=== PATIENT | female | born 1980 | race Caucasian/White ===

== ENCOUNTER 2016-12-08 15:40 | Emergency (ER) | payer OTHER ==
[~2016-12-08] VITALS: Ht 170.2 cm; Wt 100.0 kg
[~2016-12-08 15:40] MED LIST: AZIT250T94 PO; D-ME473S2 PO; IBUP-1542 PO; PRENAT PO; TYL500 PO
[2016-12-08 15:47] VITALS: Ht 170.2 cm; Wt 100.0 kg
[2016-12-08] MEDS ORDERED: ONDANSETRON 4 MG INJ IV STA (17:20)
[2016-12-08] MEDS ORDERED: morphine 4 MG/ML VIAL IV STA (17:20)
[2016-12-08 17:40] LABS: BASOPHILS % 0.4 % (0.0-2.0); EOSINOPHILS # 0.3 10^3/ul (0.0-0.5); EOSINOPHILS % 2.8 % (0.0-7.0); HEMATOCRIT 39.3 % (37.0-47.0); HEMOGLOBIN 13.5 g/dl (12.0-16.0); LYMPHOCYTES # 2.8 10^3/ul (0.8-2.9); LYMPHOCYTES % 26.8 % (15.0-51.0); MEAN CORPUSCULAR HEMOGLOBIN 32.7 pg (29.0-33.0); MEAN CORPUSCULAR HGB CONC 34.4 g/dl (32.0-37.0); MEAN CORPUSCULAR VOLUME 95.2 fl (82.0-101.0); MEAN PLATELET VOLUME 9.4 fl (7.4-10.4); MONOCYTE # 0.8 10^3/ul (0.3-0.9); MONOCYTES % 7.4 % (0.0-11.0); NEUTROPHILS % 62.1 % (39.0-77.0); PLATELET COUNT 264 10^3/UL (140-415); RED BLOOD COUNT 4.13 10^6/ul (4.20-5.40); RED CELL DISTRIBUTION WIDTH 12.4 % (11.5-14.5); WHITE BLOOD COUNT 10.3 10^3/ul (4.8-10.8)
[2016-12-08 17:51] LABS: ADD UMIC YES; UR ASCORBIC ACID NEGATIVE (NEGATIVE); UR BACTERIA FEW /HPF (NONE SEEN); UR BILIRUBIN (Dip) NEGATIVE (NEGATIVE); UR BLOOD (Dip) NEGATIVE (NEGATIVE); UR BUDDING YEAST MANY /HPF (NONE SEEN); UR CLARITY CLOUDY (CLEAR); UR COLOR YELLOW (YELLOW); UR GLUCOSE (Dip) NEGATIVE (NEGATIVE); UR KETONES (Dip) NEGATIVE (NEGATIVE); UR LEUKOCYTE ESTERASE (Dip) NEGATIVE Leu/ul (NEGATIVE); UR NITRITE (Dip) NEGATIVE (NEGATIVE); UR RBC 3 /HPF (0-5); UR SPECIFIC GRAVITY (Dip) 1.021 (1.003-1.030); UR SQUAMOUS EPITHELIAL CELL FEW /HPF (FEW); UR TOTAL PROTEIN (Dip) NEGATIVE (NEGATIVE); UR UROBILINOGEN (Dip) NEGATIVE (NEGATIVE)
[2016-12-08 18:03] LABS: ALBUMIN 4.4 g/dl (3.3-4.9); ALBUMIN/GLOBULIN RATIO 1.37; BILIRUBIN,INDIRECT 0.1 mg/dl (0-1.1); BILIRUBIN,TOTAL 0.1 mg/dl (0.2-1.3); CALCIUM 9.1 mg/dl (8.4-10.2); CREATININE 0.81 mg/dl (0.44-1.00); POTASSIUM 4.4 mmol/L (3.5-5.1); TOTAL PROTEIN 7.6 g/dl (6.1-8.1)
[2016-12-08] MEDS ORDERED: KETOROLAC 30 MG INJ IV STA (18:19)
--- NOTE | 2016-12-08 19:42 | RADRPT ---
PROCEDURE: CT Abdomen and Pelvis without contrast CLINICAL INDICATION: Abdominal pain TECHNIQUE: Transaxial images were obtained through the abdomen and pelvis on a multi-slice scanner without the intravenous contrast administration. No oral contrast had previously been given. Sagit hellen and coronal re-formations were subsequently reconstructed. One or more of the following dose reduction techniques were used: - Automated exposure control. - Adjustment of the mA and/or kV according to patient size. - Use of iterative reconstruction technique. Radiation dose: CTDIvol = 22.34 mGy; DLP = 1260.64 mGy-cm. COMPARISON: 08/13/2012 FINDINGS: Lung bases: The visualized lung bases appear unremarkable. Liver: The liver is quite enlarged but no focal lesion is identified. Gallbladder: Surgical vanessa are seen in the gallbladder fossa. Bile ducts: The intra and extrahepatic bile ducts are normal in caliber. Pancreas: Appears normal with no mass or inflammation evident. Spleen: The spleen is enlarged. Adrenals: Normal with no mass identified. Kidneys, ureters and bladder: The kidneys are normal in size and there is no mass, pathological calc ification, or hydronephrosis evident. There is no perinephric stranding. The ureters are normal in c aliber and no ureteroliths are identified. The bladder appears unremarkable. Reproductive organs: An IUD is seen within the uterus. A 3.7 cm left adnexal cyst has developed. The previously visualized right adnexal cyst is no longer identified. Stomach and bowel: The stomach is moderately distended with food debris. The small bowel pattern and has normalized. An anastomotic staple line is again seen in the region of the cecum. There is a doc rt segment of stool distended distal sigmoid colon measuring 4.9 cm in cross diameter. Appendix: The vermiform appendix is not identified. Peritoneum: No free intraperitoneal fluid or air is identified. Aorta: Normal in caliber with no aneurysmal dilatation. IVC: Unremarkable. Lymph nodes: No pathologically enlarged nodes are identified. Osseous structures: The osseous elements appear intact. IMPRESSION: 1. When compared to the previous CT of 08/13/2012, there is no longer evidence of small bowel obstr uction. The stomach is moderately distended with food debris and a staple line is again seen in the region of the cecum with an interval appendectomy. There is a short stool distended segment of dista l sigmoid colon measuring 4.9 cm in diameter. There is no evidence of bowel inflammation. 2. There is no longer free intraperitoneal fluid. No free air is identified. 3. Persistent hepatosplenomegaly. 4. There is again evidence of a previous cholecystectomy. There is no longer bile duct dilatation. 5. The right adnexal cyst is resolved and now there is a 3.7 cm left adnexal cyst. An IUD is seen i n the uterus. 6. [place] are no longer seen within the right lower quadrant. 7. The lung bases have cleared. Physician Farideh Date Time Electronically viewed and signed by Physician Farideh on 12/08/2016 19:42 RH/
--- NOTE | 2016-12-08 19:44 | ERD ---
ER Documentation Chief Complaint Date/Time DATE: 12/08/16 TIME: 19:42 Chief Complaint pt c/o RLQ pain same site of her appy surg 4 yrs ago HPI This is a 36-year-old female presents to the ER with right lower quadrant tenderness for the last 3 days. Patient states that right lower quadrant pain is worse whenever she moves or walks. She denies any fevers or chills. She denies nausea vomiting or diarrhea. Patient denies any urinary frequency or dysuria. Patient had an appendectomy 4 years ago, however she is worried about a hernia. She denies any pelvic pain or vaginal discharge. ROS 12 point review of systems was done, all negative except per HPI. Medications Home Meds Active Scripts Ibuprofen* (Motrin*) 600 Mg Tab, 600 MG PO Q6, #30 TAB Prov:HI ROSA 06/22/15 Acetaminophen* (Tylenol*) 500 Mg Tab, 500 MG PO Q4H Y for MILD PAIN LEVEL 1-3, # 16 TAB Prov:CONNIE HAYWARD MD 04/26/15 Dextromethorphan Hb-Promethazine Hcl* (Promethazine DM* Syrup) 473 Ml Syrup, 5 ML PO Q6 Y for COUGH for 7 Days, ML Prov:CONNIE HAYWARD MD 04/26/15 Azithromycin* (Zithromax*) 250 Mg Tablet, 250 MG PO .ZPACK DIRECTED, #6 TAB TAKE 500 MG (2 TABS) THE FIRST DAY THEN 250 MG (1 TAB) DAYS 2-5 Prov:CONNIE HAYWARD MD 04/26/15 Reported Medications Multivit/Min/Fol Ac/Iron/Pren* ( S*) 1 Tab Tab, 1 TAB PO DAILY, TAB 09/28/14 Allergies Allergies: Uncoded Allergies: HALLUCINATIONS (Allergy, Unknown, "HALLUCINATIONS- SEE THERE'S WORMS IN THE ARMS", 12/08/16) PMhx/Soc History of Surgery: Yes (APPY, CHOLECYSTECTOMY) Anesthesia Reaction: No Hx Neurological Disorder: No Hx Respiratory Disorders: No Hx Cardiac Disorders: No Hx Psychiatric Problems: No Hx Miscellaneous Medical Probl: No Hx Alcohol Use: No Hx Substance Use: No Hx Tobacco Use: No Smoking Status: Never smoker Physical Exam Vitals Vital Signs Date Time Temp Pulse Resp B/P Pulse Ox O2 Delivery O2 Flow Rate FiO2 12/08/16 15:47 98.3 84 16 137/75 98 Physical Exam GENERAL: The patient is well developed and appropriate for usual state of health , in no apparent distress. HEENT: Atraumatic. CHEST: Clear to auscultation bilaterally. There are no rales, wheezes or rhonchi. HEART: Regular rate and rhythm. No murmurs, clicks, rubs or gallops. ABDOMEN: Soft, nontender and nondistended. Good bowel sounds. No rebound or guarding. No gross peritonitis. No gross organomegaly or masses. No Cline sign or McBurney point tenderness. BACK: No midline or flank tenderness. NEURO: Alert and oriented. SKIN: There is no apparent rash or petechia. The skin is warm and dry. Result Diagram: 12/08/16 1725 12/08/16 1725 Results 24 hrs Laboratory Tests Test 12/08/16 17:25 12/08/16 17:30 White Blood Count 10.310^3/ul Red Blood Count 4.1310^6/ul Hemoglobin 13.5g/dl Hematocrit 39.3% Mean Corpuscular Volume 95.2fl Mean Corpuscular Hemoglobin 32.7pg Mean Corpuscular Hemoglobin Concent 34.4g/dl Red Cell Distribution Width 12.4% Platelet Count 11611^3/UL Mean Platelet Volume 9.4fl Neutrophils % 62.1% Lymphocytes % 26.8% Monocytes % 7.4% Eosinophils % 2.8% Basophils % 0.4% Nucleated Red Blood Cells % 0.0/100WBC Neutrophils # (Manual) 6.410^3/ul Lymphocytes # 2.810^3/ul Monocytes # 0.810^3/ul Eosinophils # 0.310^3/ul Basophils # 0.010^3/ul Nucleated Red Blood Cells # 0.010^3/ul Sodium Level 143mmol/L Potassium Level 4.4mmol/L Chloride Level 106mmol/L Carbon Dioxide Level 28mmol/L Anion Gap 13 Blood Urea Nitrogen 11mg/dl Creatinine 0.81mg/dl Glucose Level 95mg/dl Calcium Level 9.1mg/dl Total Bilirubin 0.1mg/dl Direct Bilirubin 0.00mg/dl Indirect Bilirubin 0.1mg/dl Aspartate Amino Transf (AST/SGOT) 19IU/L Alanine Aminotransferase (ALT/SGPT) 34IU/L Alkaline Phosphatase 62IU/L Total Protein 7.6g/dl Albumin 4.4g/dl Globulin 3.20g/dl Albumin/Globulin Ratio 1.37 Lipase 66U/L Urine Color YELLOW Urine Clarity CLOUDY Urine pH 7.0 Urine Specific [place] 1.021 Urine Ketones NEGATIVEmg/dL Urine Nitrite NEGATIVEmg/dL Urine Bilirubin NEGATIVEmg/dL Urine Urobilinogen NEGATIVEmg/dL Urine Leukocyte Esterase NEGATIVELeu/ul Urine Microscopic RBC 3/HPF Urine Microscopic WBC 5/HPF Urine Squamous Epithelial Cells FEW/HPF Urine Bacteria FEW/HPF Urine Yeast (Budding) MANY/HPF Urine Hemoglobin NEGATIVEmg/dL Urine Glucose NEGATIVEmg/dL Urine Total Protein NEGATIVEmg/dl Current Medications Medications (Trade) Dose Ordered Sig/Renetta Route PRN Reason Start Time Stop Time Status Last Admin Dose Admin Morphine Sulfate (morphine) 6 mg ONCE STAT IV 12/08/16 17:20 12/08/16 18:20 DC Ondansetron HCl (Zofran Inj) 4 mg ONCE STAT IV 12/08/16 17:20 12/08/16 17:21 DC 12/08/16 17:42 Ketorolac Tromethamine (Toradol) 30 mg ONCE STAT IV 12/08/16 18:19 12/08/16 18:20 DC 12/08/16 18:49 Procedures/MDM Differential diagnosis includes but is not limited to appendicitis, hernia,UTI, constipation, ectopic , ovarian torsion, PID, Mittelschmerz, fibroids. This is a 36-year-old female presents to the ER with right lower quadrant pain. At this time there is no evidence of acute abdominal emergency. Patient is afebrile and well-appearing. Patient will be sent home with [place] with ibuprofen. Patient is to follow-up with her primary care doctor within 1-2 days return to ER sooner if symptoms. My medical decision making sure with the patient she understands and agrees with plan. Departure Diagnosis: Primary Impression: Abdominal pain Condition: Stable HI ROSA Dec 08, 2016 19:44
[2016-12-08] MEDS ORDERED: HYDR-906 PO (19:46)
[2016-12-08] MEDS ORDERED: IBUP-1542 PO (19:46)
[2016-12-08 19:58] VITALS: BP 131/73; PULSE 67; RESP 23; TEMP 98.8
== END 2016-12-08 20:01 | disposition home or self-care (01) ==
LOC: FTE 15:40
DX: R10.31 Right lower quadrant pain (principal)
CPT/HCPCS: 36415; 74176; 80053; 81001; 83690; 85025; 96374; 96375; J1885; J2270; J2405; Z7502

== ENCOUNTER 2017-11-03 16:27 | Emergency (ER) | END 2017-11-03 17:45 | disposition home or self-care (01) ==

== ENCOUNTER 2018-04-09 23:50 | Emergency (ER) | payer OTHER ==
[~2018-04-09] VITALS: Wt 108.5 kg
[~2018-04-09 23:50] MED LIST changes: +AZIT250T PO; -AZIT250T94 PO; +BISM-34 PO; +HYDR-4011 PO; +ONDA4TAB14 PO
[2018-04-09 23:52] VITALS: Wt 108.5 kg
--- NOTE | 2018-04-10 04:21 | ERD ---
ER Documentation Chief Complaint Chief Complaint NECK PAIN, CHEST PRESSURE, RIGHT ARM NUMBNESS HPI This is a 37-year-old female with a history of hypertension who presents ED with complaints of anxiety. Patient states that earlier today as she was checking her blood pressure she noticed it was high and this made her very anxious. Patient states that at this time she started to have some chest pain as well as tingling and numbness in the fingertips. Patient states that she no longer has chest pain and no longer has tingling in the fingertips as she has relaxed in t he waiting room. Patient denies any chest pain, shortness breath, trouble breathing, cough, congestion, fever, chills and all other symptoms. ROS All systems reviewed and are negative except as per history of present illness. Medications Home Meds Active Scripts Ondansetron (Ondansetron Odt) 4 Mg Tab.rapdis, 4 MG PO Q6H PRN for NAUSEA AND/OR VOMITING, #10 TAB Prov:KEVIN WINSTON PA-C 11/03/17 Bismuth Subsalicylate* (Bismuth Subsalicylate*) 262 Mg/15 Ml Oral.susp, 15 ML PO Q6 PRN for DIARRHEA, #1 BOTTLE Prov:KEVIN WINSTON PA-C 11/03/17 Hydrocodone/Acetaminophen ([place] 5-325 Tablet) 1 Each Tablet, 1 TAB PO Q6H PRN for PAIN, #20 TAB Prov:HI ROSA 12/08/16 Ibuprofen* (Motrin*) 600 Mg Tab, 600 MG PO Q6, #30 TAB Prov:HI ROSA 12/08/16 Ibuprofen* (Motrin*) 600 Mg Tab, 600 MG PO Q6, #30 TAB Prov:HI ROSA 06/22/15 Acetaminophen* (Tylenol*) 500 Mg Tab, 500 MG PO Q4H PRN for MILD PAIN LEVEL 1-3, #16 TAB Prov:CONNIE HAYWARD MD 04/26/15 Dextromethorphan Hb-Promethazine Hcl* (Promethazine DM* Syrup) 473 Ml Syrup, 5 ML PO Q6 PRN for COUGH for 7 Days, ML Prov:CONNIE HAYWARD MD 04/26/15 Azithromycin* (Zithromax*) 250 Mg Tablet, 250 MG PO .ZPACK DIRECTED, #6 TAB TAKE 500 MG (2 TABS) THE FIRST DAY THEN 250 MG (1 TAB) DAYS 2-5 Prov:CONNIE HAYWARD MD 04/26/15 Reported Medications Multivit/Min/Fol Ac/Iron/Pren* ( S*) 1 Tab Tab, 1 TAB PO DAILY, TAB 09/28/14 Allergies Allergies: Uncoded Allergies: HALLUCINATIONS (Allergy, Unknown, "HALLUCINATIONS- SEE THERE'S WORMS IN THE ARMS", 12/08/16) PMhx/Soc History of Surgery: Yes (APPY, CHOLECYSTECTOMY, C SEC X1 ) Anesthesia Reaction: No Hx Neurological Disorder: No Hx Respiratory Disorders: No Hx Cardiac Disorders: Yes (HTN) Hx Psychiatric Problems: No Hx Miscellaneous Medical Probl: No Hx Alcohol Use: No Hx Substance Use: No Hx Tobacco Use: No Smoking Status: Never smoker FmHx Family History: No diabetes Physical Exam Vitals Vital Signs Date Temp Pulse Resp B/P (MAP) Pulse Ox O2 O2 Flow FiO2 Time Delivery Rate 04/09/18 97.0 93 18 138/89 100 23:52 (105) Physical Exam Physical Exam Vitals signs: Reviewed by me. General: Well developed, well nourished, in no acute distress. Patient is awake and alert. Head: Normocephalic, atraumatic. Eyes: Normal conjunctiva, Pupils PERRLA, EOM intact grossly ENT: Pharynx is clear, Moist mucous membranes, external ears, nose and mouth normal Neck: Supple, no masses, lymphadenopathy or JVD Respiratory: Clear to auscultation bilaterally with no wheezing, rhonchi, rales, no distress Cardiovascular: RRR, no murmurs, rubs, or gallops Abdominal: Soft, non-tender, non-distended, no peritoneal signs : Deferred MSK: No edema, no unilateral swelling, 5/5 strength Back: No midline tenderness. No flank tenderness Neurologic: Alert and oriented, moving all extremities, normal speech, no focal weakness, no cerebellar signs. Normal mentation Skin: warm and dry, No rash Psych: Anxious Procedures/MDM EKG, MONITORS, & DIAGNOSTIC IMAGING: EKG read by robert: Rate/Rhythm: Regular rate and rhythm at a rate of 90 Intervals: Normal Impression: No evidence of ischemia or arrhythmia No ST elevation, no peak T waves, no widened QRS, no OK interval prolongation, no QT interval prolongation ER COURSE: The patient was offered medication for anxiety but refuses The patient was stable throughout ED course. I kept the patient and/or family informed of laboratory and diagnostic imaging results throughout the emergency room course. The patient was promptly evaluated and a treatment plan was devised based on H&P and other data. This plan was discussed with the patient who agreed and had no further questions or concerns prior to discharge. MEDICAL DECISION MAKING: This is a 37-year-old female presents ED with complaints of anxiety. The differential diagnosis considered included but was not limited to anxiety, ACS, NV, PE, pneumonia, pneumothorax, among others. Patient is afebrile, non- tachycardic and nontachypneic non-hypoxic. Patient appears anxious but physical examination was otherwise normal.This is likely an anxiety reaction given patient's symptoms and physical examination and history. Spoke with patient at great length and offered her chest x-ray as well as blood work but she refuses stating that her symptoms are due to anxiety and she just wants to go home and sleep. No evidence of ACS, NV, aortic dissection, PE, pneumonia, pneumothorax, tension pneumothorax, pleural effusion, and other cardiopulmonary emergencies. vitals are stable and he can be managed close outpatient follow-up. Advised patient follow up with primary care clinics 40 hours. Advised patient to engage in more stress reducing techniques such as working out, yoga, meditation and going and walks. Advised patient to follow-up with psychiatry as well. Return to ED with any worsening symptoms DISPOSITION PLAN: We discussed follow up with the patient's primary care doctor within 24 to 48 hours. Patient counseled regarding my diagnostic impression and care plan. Prior to discharge all questions answered. Pt agrees with treatment plan and understands strict return precautions. Precautionary instructions provided including instructions to return to the ER if not improving or for any worsening or changing symptoms or concerns. SPECIALIST FOLLOW UP RECOMMENDED: None Patient has been advised to follow up with primary care in 1-2 days. Disclaimer: Inadvertent spelling and grammatical errors are likely due to EHR/dictation software use and do not reflect on the overall quality of patient care. Also, please note that the electronic time recorded on this note does not necessarily reflect the actual time of the patient encounter. Blood Pressure Assessment: Patient's blood pressure was elevated (>120/80) but appears stable without evidence of hypertension emergency or urgency. The patient was counseled about the risks of hypertension and urged to pursue outpatient monitoring and therapy within a week with their primary care physician. Departure Diagnosis: Primary Impression: Anxiety Condition: Stable Patient Instructions: Your Body's Response to Anxiety, Anxiety Reaction Referrals: MARIFER ROYAL,NATHAN GARCIA MD,MANDA MCLEAN MD, MD,NANDO TIPTON,ALICIA BILL,AALIYAH COX,GRICELDA FARIA [facility] YOU HAVE RECEIVED A MEDICAL SCREENING EXAM AND THE RESULTS INDICATE THAT YOU DO NOT HAVE A CONDITION THAT REQUIRES URGENT TREATMENT IN THE EMERGENCY DEPARTMENT. FURTHER EVALUATION AND TREATMENT OF YOUR CONDITION CAN WAIT UNTIL YOU ARE SEEN IN YOUR DOCTORS OFFICE WITHIN THE NEXT 1-2 DAYS. IT IS YOUR RESPONSIBILITY TO MAKE AN APPOINTMENT FOR FOLOW-UP CARE. IF YOU HAVE A PRIMARY DOCTOR --you should call your primary doctor and schedule an appointment IF YOU DO NOT HAVE A PRIMARY DOCTOR YOU CAN CALL OUR PHYSICIAN REFERRAL HOTLINE AT IF YOU CAN NOT AFFORD TO SEE A PHYSICIAN YOU CAN CHOSE FROM THE FOLLOWING [facility] [address] [facility]. [facility] [address] [facility] [address] [facility] [facility] [address] [facility] [facility] [address] [facility] [facility]. [address] Additional Instructions: Patient advised to return to the ED immediately for new or worsening symptoms. Patient advised to follow up with primary care provider in the next 24-48 hours. Patient verbalized understanding and agrees with treatment plan and course of action. If patient has no primary care they may follow up with one of the [facility] listed on the following page or one of the options listed below [facility] + [address] [address] or [facility] [address] [place] [address] or [facility] [address] [place] [address] CHERRI CAAL PA-C Apr 10, 2018 04:21
[2018-04-10 04:30] VITALS: BP 135/80; PULSE 90; RESP 18
== END 2018-04-10 04:30 | disposition home or self-care (01) ==
LOC: FTE 23:50
DX: F41.9 Anxiety disorder, unspecified (principal); I10 Essential (primary) hypertension
CPT/HCPCS: 93005; Z7502

== ENCOUNTER 2018-07-18 20:14 | Emergency (ER) | payer OTHER ==
[~2018-07-18] VITALS: Ht 167.6 cm; Wt 113.3 kg
[2018-07-18 20:29] VITALS: Ht 167.6 cm; Wt 113.3 kg
[2018-07-18] MEDS ORDERED: ACETAMINOPHEN 325 MG TAB PO STA (22:59)
[2018-07-19] MEDS ORDERED: CEPH-443 PO (00:30)
--- NOTE | 2018-07-19 00:37 | ERD ---
ER Documentation Chief Complaint Chief Complaint abd/back pain/headache x 1 day, denies vb. states 11 weeks HPI This is a 37-year-old female, -0-0-3 who presents roughly 11 weeks with complaints of lower pelvic discomfort that started this morning. Patient admits to some mild dysuria and headache. Admits to having some nausea with a couple episodes of nonbilious nonbloody vomiting. Denies vaginal pain, vaginal discharge, diarrhea, constipation, fever, chills, blurry vision, changes in vision, dizziness, lightheadedness, severe back pain and all other symptoms. Patient's next OB appointment is on July 24, 2017. Patient's OB is at the [facility], she is unsure what the name of her OB specialist is. History of gallbladder and appendix removal. ROS All systems reviewed and are negative except as per history of present illness. Medications Home Meds Active Scripts Cephalexin* (Keflex*) 500 Mg Capsule, 500 MG PO BID for 7 Days, CAP Prov:CHERRI CAAL PA-C 07/19/18 Ondansetron (Ondansetron Odt) 4 Mg Tab.rapdis, 4 MG PO Q6H PRN for NAUSEA AND/OR VOMITING, #10 TAB Prov:KEVIN WINSTON PA-C 11/03/17 Bismuth Subsalicylate* (Bismuth Subsalicylate*) 262 Mg/15 Ml Oral.susp, 15 ML PO Q6 PRN for DIARRHEA, #1 BOTTLE Prov:KEVIN WINSTON PA-C 11/03/17 Hydrocodone/Acetaminophen ([place] 5-325 Tablet) 1 Each Tablet, 1 TAB PO Q6H PRN for PAIN, #20 TAB Prov:HI ROSA 12/08/16 Ibuprofen* (Motrin*) 600 Mg Tab, 600 MG PO Q6, #30 TAB Prov:MOEHI MEDEROS 12/08/16 Ibuprofen* (Motrin*) 600 Mg Tab, 600 MG PO Q6, #30 TAB Prov:HI ROSA C 06/22/15 Acetaminophen* (Tylenol*) 500 Mg Tab, 500 MG PO Q4H PRN for MILD PAIN LEVEL 1-3, #16 TAB Prov:CONNIE HAYWARD MD 1/26/16 Dextromethorphan Hb-Promethazine Hcl* (Promethazine DM* Syrup) 473 Ml Syrup, 5 ML PO Q6 PRN for COUGH for 7 Days, ML Prov:CONNIE HAYWARD MD 04/26/15 Azithromycin* (Zithromax*) 250 Mg Tablet, 250 MG PO .ZPACK DIRECTED, #6 TAB TAKE 500 MG (2 TABS) THE FIRST DAY THEN 250 MG (1 TAB) DAYS 2-5 Prov:CONNIE HAYWARD MD 04/26/15 Reported Medications Multivit/Min/Fol Ac/Iron/Pren* ( S*) 1 Tab Tab, 1 TAB PO DAILY, TAB 09/28/14 Allergies Allergies: Uncoded Allergies: HALLUCINATIONS (Allergy, Unknown, "HALLUCINATIONS- SEE THERE'S WORMS IN THE ARMS", 12/08/16) PMhx/Soc History of Surgery: Yes (APPY, CHOLECYSTECTOMY, C SEC X1 ) Anesthesia Reaction: No Hx Neurological Disorder: No Hx Respiratory Disorders: No Hx Cardiac Disorders: Yes (HTN) Hx Psychiatric Problems: No Hx Miscellaneous Medical Probl: No Hx Alcohol Use: No Hx Substance Use: No Hx Tobacco Use: No Smoking Status: Never smoker FmHx Family History: No diabetes Physical Exam Vitals Vital Signs Date Temp Pulse Resp B/P (MAP) Pulse Ox O2 O2 Flow FiO2 Time Delivery Rate 07/18/18 97.8 98 18 160/95 98 20:29 (116) Physical Exam Physical Exam Vitals signs: Reviewed by me. General: Well developed, well nourished, in no acute distress. Patient is awake and alert. Head: Normocephalic, atraumatic. Eyes: Normal conjunctiva, Pupils PERRLA, EOM intact grossly ENT: Pharynx is clear, Moist mucous membranes, external ears, nose and mouth normal Neck: Supple, no masses, lymphadenopathy or JVD Respiratory: Clear to auscultation bilaterally with no wheezing, rhonchi, rales, no distress Cardiovascular: RRR, no murmurs, rubs, or gallops Abdominal: Soft, , no peritoneal signs, no rigidity, no surgical abdomen, bowel sounds present all 4 quadrants, nontender line to palpation all 4 quadrants, McBurney's point nontender, Back: No midline tenderness. No flank tenderness Neurologic: Alert and oriented, moving all extremities, normal speech, no focal weakness, no cerebellar signs. Normal mentation Skin: warm and dry, No rash Psych: Normal mood Result Diagram: 07/18/18 2311 07/18/18 2311 Results 24 hrs Laboratory Tests Test 07/18/18 23:11 07/18/18 23:12 White Blood Count 10.6 10^3/ul Red Blood Count 4.11 10^6/ul Hemoglobin 12.7 g/dl Hematocrit 38.0 % Mean Corpuscular Volume 92.5 fl Mean Corpuscular Hemoglobin 30.9 pg Mean Corpuscular Hemoglobin Concent 33.4 g/dl Red Cell Distribution Width 13.0 % Platelet Count 229 10^3/UL Mean Platelet Volume 9.3 fl Immature Granulocytes % 0.600 % Neutrophils % 67.3 % Lymphocytes % 23.4 % Monocytes % 6.7 % Eosinophils % 1.6 % Basophils % 0.4 % Nucleated Red Blood Cells % 0.0 /100WBC Immature Granulocytes # 0.060 10^3/ul Neutrophils # 7.1 10^3/ul Lymphocytes # 2.5 10^3/ul Monocytes # 0.7 10^3/ul Eosinophils # 0.2 10^3/ul Basophils # 0.0 10^3/ul Nucleated Red Blood Cells # 0.0 10^3/ul Sodium Level 140 mmol/L Potassium Level 4.1 mmol/L Chloride Level 101 mmol/L Carbon Dioxide Level 27 mmol/L Anion Gap 12 Blood Urea Nitrogen 10 mg/dl Creatinine 0.48 mg/dl Est Glomerular Filtrat Rate mL/min > 60 mL/min Glucose Level 98 mg/dl Calcium Level 9.4 mg/dl Total Bilirubin 0.4 mg/dl Direct Bilirubin 0.00 mg/dl Indirect Bilirubin 0.4 mg/dl Aspartate Amino Transf (AST/SGOT) 14 IU/L Alanine Aminotransferase (ALT/SGPT) 15 IU/L Alkaline Phosphatase 56 IU/L Total Protein 7.3 g/dl Albumin 4.3 g/dl Globulin 3.00 g/dl Albumin/Globulin Ratio 1.43 Lipase 48 U/L Beta HCG, Quantitative 07428.0 mIU/ml Urine Color YELLOW Urine Clarity CLOUDY Urine pH 6.0 Urine Specific [place] 1.021 Urine Ketones NEGATIVE mg/dL Urine Nitrite NEGATIVE mg/dL Urine Bilirubin NEGATIVE mg/dL Urine Urobilinogen NEGATIVE mg/dL Urine Leukocyte Esterase 1+ Roseline/ul Urine Microscopic RBC 4 /HPF Urine Microscopic WBC 53 /HPF Urine Squamous Epithelial Cells MANY /HPF Urine Mucus FEW /HPF Urine Hemoglobin 1+ mg/dL Urine Glucose NEGATIVE mg/dL Urine Total Protein NEGATIVE mg/dl Current Medications Medications Dose Sig/Renetta Start Time Status Last (Trade) Ordered Route PRN Stop Time Admin Dose Reason Admin 650 mg ONCE STAT 07/18/18 DC 07/18/18 Acetaminophen PO 22:59 23:16 (Tylenol 07/18/18 23:03 Tab) Procedures/MDM EKG, MONITORS, & DIAGNOSTIC IMAGING: [place] [id number] Radiology Main Line: [phone] DIAGNOSTIC IMAGING REPORT Patient: LINO GO : 1980 Age: 37 Sex: F MR #: [id number] DOS: 07/18/18 2259 Ordering MD: CHERRI CAAL PA-C Location: FT Room/Bed: PROCEDURE: US OB. CLINICAL INDICATION: Lower pelvic pain. Positive TECHNIQUE: Transabdominal sonographic views of the pelvis are available for review. COMPARISON: No prior studies are available for comparison. FINDINGS: Uterus: No evidence of masses and normal in size and contour. Endometrial cavity: Intrauterine gestational sac, yolk sac and pole are present with the following information: Deweese-rump length: 5.02 cm heart rate: 161 bpm Gestational sac: 5.52 cm Ultrasound estimated gestational age: 11 weeks 4 days There is no evidence of subchorionic hemorrhage Right ovary/adnexa: The ovary is not visualized. There is no evidence of adnexal mass or free fluid. Left ovary/adnexa: Ovarian size normal estimated at 5 x 2.9 x 2.5 cm. A left ovarian follicle is new measuring 80 mm in greatest dimension No adnexal mass lesion is seen. Cul-de-sac: There is no free fluid. RPTAT:HJJR IMPRESSION: 1. Single live intrauterine with an estimated gestational age of 11 weeks 4 days, the estimated date of delivery 02/02/2019. 2. Incidental left ovarian follicle, the right ovary is not visualized. 3. There is no evidence of subchorionic hemorrhage. Physician Melisa Date Time Electronically viewed and signed by Physician Melisa on 07/19/2018 01:00 JR/ CC: CHERRI CAAL PA-C [id number] LAB INTERPRETATION: CBC shows no evidence of hemorrhage or infection Chemistry shows no evidence of significant electrolyte abnormalities or renal insufficiency Liver function test shows no evidence of acute biliary or hepatic dysfunction Lipase shows no evidence of acute pancreatitis hCG four 4695.0 Urinalysis remarkable for a 53 microscopic WBCs, 1+ leukocyte esterase, Blood type O+ ER COURSE: The patient was given Tylenol The medication was well tolerated and the patient reports improvement in symptoms. The patient was stable throughout ED course. I kept the patient and/or family informed of laboratory and diagnostic imaging results throughout the emergency room course. The patient was promptly evaluated and a treatment plan was devised based on H&P and other data. This plan was discussed with the patient who agreed and had no further questions or concerns prior to discharge. MEDICAL DECISION MAKING: This is a 37-year-old female presents at roughly 11 weeks with planes of lower pelvic discomfort since this morning. Ultrasound confirms an intrauterine . Ectopic not visualized. Blood type O+ and does not require any RhoGam. Urinalysis shows WBCs and 1+ leukocyte Estrace. I believe that patient's pain is likely due to UTI. We will treat patient with antibiotics for UTI. Patient is afebrile, nontoxic-appearing and not hypoxic. She is hemodynamically stable. At this time there is no gastrointestinal or genitourinary or gynecologic emergency. No evidence of ectopic , tubo- ovarian abscess, ovarian torsion, sepsis, septic stone, obstructive pyelonephritis, appendicitis, small bowel obstruction, pancreatitis, cholecystitis, among others. Advise advised patient follow-up with her OB specialist in the next 48 hours. Advised to return to ER with any worsening symptoms. DISPOSITION PLAN: We discussed follow up with the patient's primary care doctor within 24 to 48 hours. Patient counseled regarding my diagnostic impression and care plan. Prior to discharge all questions answered. Pt agrees with treatment plan and understands strict return precautions. Precautionary instructions provided including instructions to return to the ER if not improving or for any worsening or changing symptoms or concerns. SPECIALIST FOLLOW UP RECOMMENDED: CULTURAL HISTORIAN Patient has been advised to follow up with primary care in 1-2 days. Disclaimer: Inadvertent spelling and grammatical errors are likely due to EHR/dictation software use and do not reflect on the overall quality of patient care. Also, please note that the electronic time recorded on this note does not necessarily reflect the actual time of the patient encounter. Blood Pressure Assessment: Patient's blood pressure was elevated (>120/80) but appears stable without evidence of hypertension emergency or urgency. The patient was counseled about the risks of hypertension and urged to pursue outpatient monitoring and therapy within a week with their primary care physician. Departure Diagnosis: Primary Impression: UTI (urinary tract infection) during Trimester: first trimester Qualified Codes: O23.41 - Unspecified infection of urinary tract in , first trimester Condition: Stable Patient Instructions: Understanding Urinary Tract Infections (UTIs), : Your First Trimester Changes, Adapting to : First Trimester Referrals: [facility] YOU HAVE RECEIVED A MEDICAL SCREENING EXAM AND THE RESULTS INDICATE THAT YOU DO NOT HAVE A CONDITION THAT REQUIRES URGENT TREATMENT IN THE EMERGENCY DEPARTMENT. FURTHER EVALUATION AND TREATMENT OF YOUR CONDITION CAN WAIT UNTIL YOU ARE SEEN IN YOUR DOCTORS OFFICE WITHIN THE NEXT 1-2 DAYS. IT IS YOUR RESPONSIBILITY TO MAKE AN APPOINTMENT FOR FOLOW-UP CARE. IF YOU HAVE A PRIMARY DOCTOR --you should call your primary doctor and schedule an appointment IF YOU DO NOT HAVE A PRIMARY DOCTOR YOU CAN CALL OUR PHYSICIAN REFERRAL HOTLINE AT IF YOU CAN NOT AFFORD TO SEE A PHYSICIAN YOU CAN CHOSE FROM THE FOLLOWING [facility] [address] [facility] [address] [facility] [address] [facility] [address] [facility] [address] [facility] [facility] CULTURAL HISTORIAN [place] [address] [facility] [address] [place] [address] OFFICE FAX , [place] [address] [place] [address] [address] SAL[address]O, [place] [address] [place] [address] DR NOYOLA, [facility] [address], [address], [place] [address] [facility] [address] [place] [address] [facility] [address] [place] [address] [phone] [facility] [address] - [address] FOSTER INEZ [address], [place] [address] DR JENKINS, [place] [address] [facility]. [address], [place] [address] DR CARROLL, [facility] [address] [place], [place] [id number] Additional Instructions: Patient advised to return to the ED immediately for new or worsening symptoms. Patient advised to follow up with primary care provider in the next 24-48 hours. Patient verbalized understanding and agrees with treatment plan and course of action. If patient has no primary care they may follow up with one of the community clinics listed on the following page or one of the options listed below [facility] + [facility] [address] [place] [address] or [facility] [address] [place] [address] or [facility] [address] [place] [address] CHERRI CAAL PA-C Jul 19, 2018 00:37
[2018-07-19 01:06] VITALS: BP 148/86; PULSE 86; RESP 18
== END 2018-07-19 01:21 | disposition home or self-care (01) ==
LOC: FTE 20:14
DX: O23.41 Unspecified infection of urinary tract in pregnancy, first trimester (principal); O10.011 Pre-existing essential hypertension complicating pregnancy, first trimester; R10.2 Pelvic and perineal pain; Z3A.11 11 weeks gestation of pregnancy
CPT/HCPCS: 36415; 76801; 80053; 81001; 83690; 84702; 85025; 86900; 86901; 87086; Z7502; Z7610

== ENCOUNTER 2018-11-09 03:53 | Inpatient (IN) | payer OTHER ==
[~2018-11-09] VITALS: Ht 167.6 cm; Wt 107.7 kg
[~2018-11-09 03:53] MED LIST changes: +CEPH-443 PO; +PREN1TAB13 PO; +RANI150T5 PO
--- NOTE | 2018-11-09 04:11 | PN ---
Date/Time of Note Date/Time of Note DATE: 11/09/18 TIME: 04:08 OB Subjective Subjective Subjective IUP 28 weeks h/o CS x 1 back pain, dysuria OB Objective Heart: Rhythm Normal Lungs: Clear Abdomen: Abnormal (lower back tenderness, no CVA tenderness bilaterally) Extremities: Normal Contractions on Admission: >10 Minutes Apart OB Assessment/Plan Reason for admission: other (IUP 8 weeks , back pain, dysuria) Other plan: UA, CBC, schedulle OB US, kidney US CONNIE SNOW MD Nov 09, 2018 04:10
[2018-11-09 06:20] VITALS: Ht 167.6 cm; Wt 107.7 kg
[2018-11-09 06:21] VITALS: BP 143/83; PULSE 92; RESP 18
[2018-11-09] MEDS ORDERED: CEFAZOLIN 2 GM/50 ML (PMX) 50 ML IVPB ONE (06:30)
[2018-11-09] MEDS ORDERED: LACTATED RINGER'S 1,000 ML IV ONE (06:30)
[2018-11-09] MEDS ORDERED: HYDROCODONE/APAP (5/325) TAB PO ONE (07:00)
--- NOTE | 2018-11-09 08:09 | HP ---
Date/Time of Note Date/Time of Note DATE: 11/09/18 TIME: 08:08 OB - History Hx of Present Free Text/Dictation @27+ with Renal stone and UTI : 4 Para: 3 Care: Good Care Ultrasounds: Normal mid trimester US Obstetrical Complications: None Medical Complications: None Past Family/Social History * Past Medical, Surgical, Family and Obstetric Histories reviewed from chart. OB Admission Exam Vital Signs Vital Signs Vital Signs Date Temp Pulse Resp B/P (MAP) Pulse Ox O2 O2 Flow FiO2 Time Delivery Rate 11/09/18 97.7 92 18 143/83 Room Air 06:21 (103) Physical Exam Abdomen: WNL Extremities: Normal Cervical Dilatation: None Effacement: 0% Station: Ballotable Membranes: Intact Heart Rate: 140's Accelerations: Accelerations Present Decelerations: No Decelerations Varibility: Moderate Contractions on Admission: None Last 72 hours Lab Results CBC & BMP 11/09/18 04:25 OB Assessment/Plan Reason for admission: observation Other Assessment: PMH Denies PSH 1 c/s Plan: Expectant Management LEXUS ADKINS M.D. Nov 09, 2018 08:09
[2018-11-09] MEDS ORDERED: BUTORPHANOL 2 MG INJ IV PRN (08:30)
[2018-11-09] MEDS: LACTATED RINGER'S 1,000 ML IV SCH ×2 (09:56→16:21)
[2018-11-09] MEDS: FERROUS SULFATE (EC) 325 MG TAB PO SCH (09:56)
[2018-11-09] MEDS: PRENATAL VITAMIN PO SCH (09:56)
[2018-11-09] MEDS: BETAMET NA PHOS/AC(6 MG/ML) 2 ML INJ SYG IM SCH (10:16)
[2018-11-09] MEDS: CEFAZOLIN 2 GM/50 ML (PMX) 50 ML IVPB SCH ×2 (14:32→22:06)
[2018-11-10] MEDS: CEFAZOLIN 2 GM/50 ML (PMX) 50 ML IVPB SCH (06:13)
[2018-11-10] MEDS: LACTATED RINGER'S 1,000 ML IV SCH ×2 (07:42)
[2018-11-10] MEDS: FERROUS SULFATE (EC) 325 MG TAB PO SCH (09:25)
[2018-11-10] MEDS: PRENATAL VITAMIN PO SCH (09:25)
[2018-11-10] MEDS: BETAMET NA PHOS/AC(6 MG/ML) 2 ML INJ SYG IM SCH (10:11)
[2018-11-10] MEDS ORDERED: LACTATED RINGER'S 1,000 ML IV SCH (10:47)
[2018-11-10] MEDS ORDERED: MISOPROSTOL 200 MCG TAB PR PRN (11:00)
[2018-11-10] MEDS ORDERED: OXYTOCIN 30 UNITS/LR 500 ML IV SCH ×2 (11:00)
[2018-11-10] MEDS ORDERED: LIDOCAINE 1% (MPF) 30 ML INJ INJ PRN (11:00)
[2018-11-10] MEDS ORDERED: AMPICILLIN 2 GM/NS (PMX) 100 ML IV ONE (11:00)
[2018-11-10] MEDS ORDERED: METHYLERGONOVINE 0.2 MG INJ IM PRN (11:00)
[2018-11-10] MEDS ORDERED: OXYTOCIN 30 UNITS/LR 500 ML IV PRN (11:00)
[2018-11-10] MEDS ORDERED: MINERAL OIL LIGHT 10 ML VIAL TOP ONE (11:00)
[2018-11-10] MEDS ORDERED: IBUPROFEN 600 MG TAB PO PRN (11:00)
[2018-11-10] MEDS ORDERED: BUTORPHANOL 2 MG INJ IV PRN ×2 (11:00)
[2018-11-10] MEDS ORDERED: CARBOPROST 250 MCG INJ IM PRN (11:00)
--- NOTE | 2018-11-10 14:53 | DS ---
Date/Time of Note Date/Time of Note DATE: 11/10/18 TIME: 14:52 Obstetrical Discharge Record Final Diagnosis Final Diagnosis: not delivered Other Final Diagnosis Date of admission 11/09/2018 Hospital day 2 27.6 wga 1. Kidney stone-admitted with dysuria and back pain. urinalysis without evidence of infection. renal us with evidence of 3 mm nonobstructing stone in left kidney. given ivf, antibiotics and analgesics. prior to discharge, no pain noted. No CVA tenderness to palpation. 2. history of section-likely repeat. 3. IUP-. expectant. bpp 11/06 on 11/09/18. efw 1178 g 71.1%ile. Follow up appointment on 11/14/18. 4. Elevated blood pressure-preeclamptic labs normal. protein/creatinine ratio 0.28. Asymptomatic. Condition on Discharge Physical Assessment Patient Condition: Stable MILESTONE,SHARMAINE FARIA Nov 10, 2018 14:53
[2018-11-10] MEDS ORDERED: AMPICILLIN 1 GM/NS (PMX) 50 ML IV SCH (15:00)
== END 2018-11-10 15:05 | disposition home or self-care (01) | DRG 833 ==
LOC: OBT 03:53 → L-D 03:55 → OBT 07:55
PROVIDERS: ADMIT Obstetrics & Gynecology; ATTEND Obstetrics & Gynecology
DX: O26.892 Other specified pregnancy related conditions, second trimester (principal); N20.0 Calculus of kidney; R03.0 Elevated blood-pressure reading, without diagnosis of hypertension; O09.522 Supervision of elderly multigravida, second trimester; Z3A.27 27 weeks gestation of pregnancy
CPT/HCPCS: 76775; 76815; 76817; 76818; 80053; 81001; 81003; 82570; 83615; 84560; 85025; 86592; 87086; 87340; 96374; G0463; J0690; J0702; J7120

== ENCOUNTER 2018-12-02 17:40 | Inpatient (IN) | payer OTHER ==
[~2018-12-02 17:40] MED LIST changes: -AZIT250T PO; -BISM-34 PO; -CEPH-443 PO; -D-ME473S2 PO; -HYDR-4011 PO; -IBUP-1542 PO; -ONDA4TAB14 PO; -RANI150T5 PO; -TYL500 PO
[2018-12-02 17:58] VITALS: BP 128/74; PULSE 80; RESP 22
[2018-12-02] MEDS ORDERED: RANITIDINE 150 MG TAB PO SCH (23:00)
[2018-12-02] MEDS ORDERED: ACETAMINOPHEN 500 MG TAB PO PRN (23:00)
[2018-12-03] MEDS ORDERED: RANITIDINE 150 MG TAB PO SCH (21:00)
== END 2018-12-03 11:00 | disposition home or self-care (01) | DRG 833 ==
LOC: OBT 17:40 → L-D 17:41 → OBT 19:00 → L-D 19:00
PROVIDERS: ADMIT Obstetrics & Gynecology; ATTEND Obstetrics & Gynecology
DX: O60.03 Preterm labor without delivery, third trimester (principal); Z3A.30 30 weeks gestation of pregnancy
CPT/HCPCS: 76815; 76817; 76818; 80307; 81001; 87086; G0463

== ENCOUNTER 2019-01-23 10:06 | Outpatient (CLI) | payer OTHER ==
[~2019-01-23] VITALS: Ht 167.6 cm; Wt 109.2 kg
[2019-01-23 10:13] VITALS: Ht 167.6 cm; Wt 109.2 kg
[2019-01-23 10:32] VITALS: BP 125/78; PULSE 68; RESP 18
== END 2019-01-23 12:55 | disposition home or self-care (01) ==
LOC: L-D 10:06 → OBT 10:06
PROVIDERS: ATTEND Obstetrics & Gynecology
DX: O09.523 Supervision of elderly multigravida, third trimester (principal); Z3A.38 38 weeks gestation of pregnancy
CPT/HCPCS: 76815; 76818; 80053; 81001; 82950; 83036; 84560; 85025; 85384; 85610; 85730; 87086; Z7500; G0463

== ENCOUNTER 2019-01-29 22:10 | Inpatient (IN) | payer OTHER ==
[2019-01-30] MEDS ORDERED: LIDOCAINE 1% (MPF) 30 ML INJ INJ SCH
[2019-01-30] MEDS ORDERED: LACTATED RINGER'S 1,000 ML IV PRN
[2019-01-30] MEDS ORDERED: OXYTOCIN 30 UNITS/LR 500 ML IV SCH ×3
[2019-01-30] MEDS ORDERED: IBUPROFEN 600 MG TAB PO PRN
[2019-01-30] MEDS ORDERED: BUTORPHANOL 2 MG INJ IV PRN ×2
[2019-01-30] MEDS ORDERED: MINERAL OIL LIGHT 10 ML VIAL TOP PRN
[2019-01-30] MEDS: LACTATED RINGER'S 1,000 ML IV SCH ×3 (01:21→18:36)
[2019-01-30] MEDS ORDERED: MINERAL OIL LIGHT 10 ML VIAL TOP ONE (11:00)
[2019-01-30] MEDS ORDERED: FENTAnyl 2MCG/ML-ROPIV 0.2% 100 ML ONE (16:18)
[2019-01-30] MEDS ORDERED: DIPHENHYDRAMINE 50 MG INJ IV PRN ×2 (18:00→21:00)
[2019-01-30] MEDS ORDERED: ONDANSETRON 4 MG INJ IV PRN ×2 (18:00→21:00)
[2019-01-30] MEDS ORDERED: FENTAnyl 2MCG/ML-ROPIV 0.2% 100 ML BAG EPI SCH (18:00)
[2019-01-30] MEDS ORDERED: NALOXONE (0.4 MG/ML) INJ IV PRN (18:00)
[2019-01-30] MEDS ORDERED: LACTATED RINGER'S 1,000 ML IV* SCH (20:44)
[2019-01-30] MEDS ORDERED: DIBUCAINE 1% 30 GM OINT TOP PRN (21:00)
[2019-01-30] MEDS ORDERED: OXYTOCIN 30 UNITS/LR 500 ML IV PRN ×2 (21:00)
[2019-01-30] MEDS ORDERED: METHYLERGONOVINE 0.2 MG INJ IM PRN ×2 (21:00)
[2019-01-30] MEDS ORDERED: HYDROCODONE/APAP (5/325) TAB PO PRN ×2 (21:00)
[2019-01-30] MEDS ORDERED: ONDANSETRON 4 MG TAB PO PRN (21:00)
[2019-01-30] MEDS ORDERED: DIPHENHYDRAMINE 25 MG CAP PO PRN (21:00)
[2019-01-30] MEDS ORDERED: SENNA/DOCUSATE NA (8.6MG/50MG) TAB PO PRN (21:00)
[2019-01-30] MEDS ORDERED: MISOPROSTOL 200 MCG TAB PR PRN ×2 (21:00)
[2019-01-30] MEDS ORDERED: CARBOPROST 250 MCG INJ IM PRN ×2 (21:00)
[2019-01-30] MEDS ORDERED: LANOLIN HPA 1 PKT TOP PRN (21:00)
[2019-01-30] MEDS ORDERED: MAGNESIUM HYDROXIDE 30ML CUP PO PRN (21:00)
[2019-01-30] MEDS ORDERED: ACETAMINOPHEN 325 MG TAB PO PRN ×2 (21:00)
[2019-01-30] MEDS ORDERED: BENZOCAINE 20% 56 ML SPRAY TOP PRN (21:00)
[2019-01-30] MEDS ORDERED: LABETALOL 200 MG TAB PO PRN (21:30)
[2019-01-30 23:15] VITALS: BP 137/72; PULSE 78; RESP 20
[2019-01-31] MEDS: IBUPROFEN 800 MG TAB PO SCH ×4 (00:25→19:11)
[2019-01-31 08:00] VITALS: BP 118/73; PULSE 71; RESP 18
[2019-01-31 08:23] VITALS: BP 118/73; PULSE 71; RESP 18
[2019-01-31] MEDS: LABETALOL 100 MG TAB PO SCH ×2 (09:41→21:42)
[2019-01-31 12:50] VITALS: BP 115/63; PULSE 71; RESP 20
[2019-01-31 16:00] VITALS: BP 118/57; PULSE 72; RESP 18
[2019-01-31 20:05] VITALS: BP 135/82; PULSE 72; RESP 18
[2019-02-01 00:20] VITALS: BP 135/80; PULSE 78; RESP 18
[2019-02-01] MEDS: IBUPROFEN 800 MG TAB PO SCH ×4 (00:32→17:54)
[2019-02-01 04:10] VITALS: BP 125/68; PULSE 88; RESP 18
[2019-02-01 08:00] VITALS: BP 122/75; PULSE 71; RESP 18
[2019-02-01] MEDS ORDERED: DIPHTH/TET/ACEL PERTUSS (ADULT) 0.5 ML VIAL IM* ONE (09:00)
[2019-02-01] MEDS ORDERED: MEASLES,MUMPS,RUBELLA VACCINE INJ SC* ONE (09:00)
[2019-02-01] MEDS ORDERED: VARICELLA VACCINE LIVE/PF 1,350 UNIT/0.5 ML ML SC* ONE (09:00)
[2019-02-01] MEDS: LABETALOL 100 MG TAB PO SCH ×2 (10:15→21:20)
[2019-02-01 15:55] VITALS: BP 132/74; PULSE 62; RESP 16
[2019-02-01 16:00] VITALS: BP 122/75; PULSE 71; RESP 18
[2019-02-01 20:30] VITALS: BP 133/78; PULSE 90; RESP 17
== END 2019-02-01 22:00 | disposition home or self-care (01) | DRG 807 ==
LOC: OBT 22:10 → L-D 22:11 → OBT 23:07 → L-D 01-30 00:33 → PP1 01-30 23:16
PROVIDERS: ADMIT Obstetrics & Gynecology; ATTEND Obstetrics & Gynecology
PROC: 10D07Z6 Extraction of Products of Conception, Vacuum, Via Natural or Artificial Opening (ICD-10-PCS; principal; 2019-01-30)
PROC: 0UQMXZZ Repair Vulva, External Approach (ICD-10-PCS; 2019-01-30)
PROC: 3E033VJ Introduction of Other Hormone into Peripheral Vein, Percutaneous Approach (ICD-10-PCS; 2019-01-30)
DX: O75.81 Maternal exhaustion complicating labor and delivery (principal); Z37.0 Single live birth; O24.429 Gestational diabetes mellitus in childbirth, unspecified control; O76 Abnormality in fetal heart rate and rhythm complicating labor and delivery; O13.4 Gestational [pregnancy-induced] hypertension without significant proteinuria, complicating childbirth; O71.82 Other specified trauma to perineum and vulva; O66.5 Attempted application of vacuum extractor and forceps; Z3A.39 39 weeks gestation of pregnancy
CPT/HCPCS: 36600; 62322; 80053; 81001; 81003; 82803; 84560; 85025; 85610; 85730; 86592; 86850; 86900; 86901; 87086; 87340; 90716; 99464; G0463; J2590; J3010; J7120